=== PATIENT | female | born 1945 | race Caucasian/White ===

== ENCOUNTER 2016-12-13 15:13 | Outpatient (CLI) | payer MEDICARE, OTHER ==
[~2016-12-13 15:13] MED LIST: ALEN70TA27 PO; ALPR0.5T96 PO; ASPI81TA2 PO; BUSP10TA3 PO; CLOP75TA2 PO; CYCL-10 PO; ESCI20TA PO; GABA-529 PO; LEVO175T2 PO; LIP10 PO; MONT10TA25 PO; OMEG1CAP55 PO; OMEP20CA10 PO; OXYC10TA71 PO; PRED2.5T4 PO; PRED5TAB PO; ROPI0.252 PO; VALS320T10 PO; [UNRECOGNIZED DRUG - OTHER] PO; [UNRECOGNIZED DRUG - OTHER] PO
== END 2016-12-13 18:35 | disposition home or self-care (01) ==
LOC: SMA 15:13
PROVIDERS: ATTEND Internal Medicine
DX: Z12.31 Encounter for screening mammogram for malignant neoplasm of breast (principal)
CPT/HCPCS: G0202

== ENCOUNTER 2017-08-07 16:04 | Emergency (ER) | payer MEDICARE, OTHER ==
[~2017-08-07] VITALS: Ht 160 cm; Wt 60.3 kg
[2017-08-07 16:10] VITALS: BP_SYST 154
[2017-08-07] MEDS ORDERED: NACL 0.9% 1,000 ML IV ONE (16:29)
[2017-08-07] MEDS ORDERED: ONDANSETRON HCL 4 MG/2 ML VIAL IVP ONE (16:30)
[2017-08-07 16:50] LABS: BASOPHILS % (AUTO) 0.7 % (0.0-2.0); EOSINOPHILS # (AUTO) 0.1 K/uL (0.0-0.4); EOSINOPHILS % (AUTO) 1.6 % (0.0-4.0); HEMATOCRIT 37.6 % (36-48); HEMOGLOBIN 12.5 g/dL (12.0-16.0); LYMPHOCYTES # (AUTO) 0.9 K/uL (1.0-5.5); LYMPHOCYTES % (AUTO) 18.4 % (20.5-51.5); MEAN CORPUSCULAR HEMOGLOBIN 31 pg (27-31); MEAN CORPUSCULAR HGB CONC 33 % (32-36); MEAN CORPUSCULAR VOLUME 93 fL (79.0-98.0); MONOCYTES # (AUTO) 0.7 K/uL (0.0-1.0); MONOCYTES % (AUTO) 14.5 % (1.7-9.3); NEUTROPHILS # (AUTO) 3.3 K/uL (1.8-7.7); NEUTROPHILS % (AUTO) 64.8 % (40.0-70.0); PLATELET COUNT (AUTO) 473 K/uL (130-430); RED BLOOD CELL COUNT(AUTO) 4.03 MIL/uL (4.2-6.2); RED CELL DISTRIBUTION WIDTH 13.5 % (9.0-15.0)
[2017-08-07 17:05] LABS: CLARITY/URINE HAZY (CLEAR); COLOR,URINE YELLOW (YELLOW); GLUCOSE,URINE NEGATIVE (NEGATIVE); PH,URINE 5.5 (5.0-8.0); PROTEIN URINE 1+ (NEGATIVE)
[2017-08-07 17:06] LABS: BILIRUBIN,URINE 2+ (NEGATIVE); BLOOD, URINE NEGATIVE (NEGATIVE); KETONES,URINE TRACE (NEGATIVE); LEUKOCYTE ESTERASE ,URINE TRACE (NEGATIVE); NITRITE, URINE NEGATIVE (NEGATIVE)
[2017-08-07 17:08] LABS: ALANINE AMINOTRANSFERASE 18 U/L (12-78); ALBUMIN 3.1 g/dL (3.4-4.8); ANION GAP 9 (5-15); ASPARTATE AMINOTRANSFERASE 17 U/L (10-37); CALCIUM 9.2 mg/dL (8.4-11.0); CHLORIDE 107 mmol/L (98-107); CREATININE 0.89 mg/dL (0.55-1.30); GLUCOSE 92 mg/dL (70-99); LIPASE 103 U/L (73-393); SODIUM SERUM 142 mmol/L (136-145); TOTAL BILIRUBIN 0.3 mg/dL (0.0-1.0); UREA NITROGEN, BLOOD 12 mg/dL (8-21)
[2017-08-07 17:25] LABS: BACTERIA,URINE FEW /HPF (None Seen); FINE GRANULAR CASTS,URINE 0-10 /LPF (None Seen); HYALINE CASTS, URINE 0-10 /LPF (None Seen); MUCUS,URINE 2+ /LPF (None Seen); RBC,URINE 0-3 /HPF (0-3); URINE AMORPHOUS URATE 2+ /HPF (None Seen)
[2017-08-07] MEDS ORDERED: FLUT1AER INH (17:36)
[2017-08-07] MEDS ORDERED: ALBMDI INH (17:36)
[2017-08-07] MEDS ORDERED: PRED1TAB PO (17:36)
[2017-08-07] MEDS ORDERED: SULF1TAB48 PO (17:36)
[2017-08-07] MEDS ORDERED: LIP10 PO (17:36)
[2017-08-07] MEDS ORDERED: IPRA4AER INH (17:36)
[2017-08-07] MEDS ORDERED: POTASSIUM CHLORIDE 20 MEQ/PKT PACKET PO ONE (18:00)
[2017-08-07 18:31] VITALS: BP_SYST 144
[2017-08-10] MEDS ORDERED: ACET-2165 PO (01:04)
[2017-08-10] MEDS ORDERED: VALS320T10 PO (01:04)
[2017-08-10] MEDS ORDERED: CLOP75TA2 PO (01:04)
[2017-08-10] MEDS ORDERED: GABA-533 PO (01:04)
== END 2017-08-07 18:31 | disposition home or self-care (01) ==
LOC: SED 16:04
DX: K59.00 Constipation, unspecified (principal); N39.0 Urinary tract infection, site not specified; E87.6 Hypokalemia; J44.9 Chronic obstructive pulmonary disease, unspecified; R03.0 Elevated blood-pressure reading, without diagnosis of hypertension; Z86.73 Personal history of transient ischemic attack (TIA), and cerebral infarction without residual deficits; Z90.89 Acquired absence of other organs; Z90.49 Acquired absence of other specified parts of digestive tract; Z90.710 Acquired absence of both cervix and uterus; Z79.82 Long term (current) use of aspirin; Z79.899 Other long term (current) drug therapy
CPT/HCPCS: 36415; 74176; 80053; 81000; 83690; 85025; 87086; 96361; 96374; 99285; J2405; J7030

== ENCOUNTER 2022-03-09 11:57 | Outpatient (CLI) | payer MEDICARE, OTHER ==
[~2022-03-09 11:57] MED LIST changes: +ACET325T PO; +ALBMDI INH; +ALPR0.5T PO; -ALPR0.5T96 PO; +ASPI-1155 PO; -ASPI81TA2 PO; -CYCL-10 PO; +CYCL10TA24 PO; +FLUT1AER INH; -GABA-529 PO; +GABA-533 PO; +IPRA4AER INH; +LACT1CAP72 PO; +MONT-40 PO; -MONT10TA25 PO; -OMEP20CA10 PO; +OMEP20CA15 PO; +OXYC10TA56 PO; -OXYC10TA71 PO; +POLY17PO4 PO; +PRED1TAB PO; -PRED2.5T4 PO; -VALS320T10 PO; +VALS320T2 PO; -[UNRECOGNIZED DRUG - OTHER] PO
== END 2022-03-09 20:33 | disposition home or self-care (01) ==
LOC: SMA 11:57
PROVIDERS: ATTEND Internal Medicine
DX: Z12.31 Encounter for screening mammogram for malignant neoplasm of breast (principal)
CPT/HCPCS: 77067